=== PATIENT | female | born 1970 | race Caucasian/White ===

== ENCOUNTER → 2016-08-04 | Outpatient (CLI) | payer BC ==
[~2016-08-04] MED LIST: BUSP15TA3 PO; DICY10CA13 PO; FLUO-138 PO; GLUC100015 PO; HYDR-3989 PO; LORA1TAB3 PO; OMEG300C PO; POLY119P3 PO; TRAZ-173 PO
--- NOTE | 2016-08-04 12:16 | DI ---
Indication:ITS.REASON: DIARRHEA; ABDOMINAL PAIN; BLOATING; GAS Procedure:UPPER GI W/KUB, SBS, CONTR. X2 Bean Snipper KUB: Two blending tank tender abdominal radiographs were obtained and are negative. UPPER GI WITH SMALL BOWEL FOLLOW-THROUGH: Technique:After ingesting air crystals, the patient swallowed thick and thin barium without difficulty. Fluoroscopic imaging was obtained in the upright LPO, supine AP, LPO, RPO, and right lateral positions. Conventional x-ray imaging of the abdomen was obtained in timed intervals until contrast was visualized in the colon. Additional fluoroscopic imaging was then obtained. Findings: Esophagus: The esophagus is negative. Esophageal motility appears normal. The cricopharyngeus muscle relaxes completely. There is no Zenker's diverticulum. No hiatal hernia or gastroesophageal reflux is visualized. Stomach: The stomach is negative. It is normal in contour and appearance. The mucosal fold patterns appear normal. There is no obvious ulcer. There is no filling defect to suggest a mass. Small bowel: There is a rapid transit time of under five minutes. A small amount of contrast is visualized in the colon on the immediate film. A 20 minute delayed image was obtained to completely fill the small bowel loops of contrast. The remainder of the small bowel is negative. The mucosal fold patterns of the small bowel appear normal. There is no obvious ulcer. There is no filling defect in the small bowel to suggest a mass. The duodenal sweep crosses midline in a normal fashion. There is no obstruction or malrotation of the small bowel. Incidental findings: There is a filling defect in the ascending colon that has irregularly shouldered margins with a classic "apple core" appearance. This is highly suspicious for a colonic mass in the ascending colon. A colonoscopy should be performed for further evaluation. Contrast does flow through this area with only minimal difficulty. Impression: 1. Filling defect in the ascending colon that is highly suggestive of a colonic mass. A colonoscopy could be performed for further evaluation. 2. The esophagus, stomach, and small bowel are negative. These results were telephoned to Dr. Olguin's office at the conclusion of this exam. Fluoroscopy dose: 51.95 mGy (Cumulative air kerma) Jn Scott RPA/TWAN performed this under my direct supervision. .
== END ==
LOC: IMA 09:20
PROVIDERS: ATTEND Internal Medicine Gastroenterology
DX: R10.9 Unspecified abdominal pain (principal); R19.7 Diarrhea, unspecified; R14.0 Abdominal distension (gaseous); R93.3 Abnormal findings on diagnostic imaging of other parts of digestive tract

== ENCOUNTER → 2016-08-18 | Outpatient (CLI) | payer BC ==
[~2016-08-18] MED LIST changes: +IOHEXOL 300 MG/ML 100ml INJECTION ONE; +NORMAL SALINE 100 ML ONE; +SALINE FLUSH 10ml SYRINGE ONE
--- NOTE | 2016-08-18 12:19 | DI ---
Indication: ITS.REASON: COLON ABNORMALITY PROCEDURE: CT ABD/PELVIS W/CONTRAST ONLY: Encounter: Initial Comparison: Upper GI dated August 04, 2016 Technique: Axial CT images were performed through the abdomen and pelvis after the administration of intravenous contrast. Coronal and sagittal two-dimensional reformats. Automated Exposure Control and Iterative Reconstruction dose reducing techniques were utilized. Contrast: Omnipaque 300 89 mL Findings: The lung bases are clear. The liver is decreased in attenuation relative to the spleen consistent with mild fatty infiltration. No enhancing liver mass or bile duct dilatation. The gallbladder is contracted limiting evaluation. The spleen, pancreas and adrenal glands are within normal limits. The kidneys are normal. No abdominal or pelvic lymphadenopathy. Bladder is normal. Uterus is surgically absent. No free fluid. Colon is decompressed distally. No evidence of small bowel obstruction. In the area of clinical concern in the mid ascending colon there is a short segment of wall thickening seen on coronal image #23 and axial image #53 extending over a segment measuring 2.5 cm in length causing luminal narrowing. The colon is relatively underdistended limiting evaluation of this segment. No adjacent lymphadenopathy. Bone windows are within normal limits. Impression: 1. No evidence of metastatic disease in the abdomen or pelvis. 2. Short segment wall thickening in the mid ascending colon correlating to the abnormality seen on upper GI, again concerning for colon malignancy. Recommend correlation with colonoscopy findings and any prior biopsies. .
== END ==
LOC: IMA 08:59
PROVIDERS: ATTEND Internal Medicine Gastroenterology
DX: K63.89 Other specified diseases of intestine (principal); R93.3 Abnormal findings on diagnostic imaging of other parts of digestive tract
CPT/HCPCS: 74177; J7050; Q9967